=== PATIENT | female | born 2000 | race Caucasian/White ===

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

== ENCOUNTER 2023-04-25 23:55 | Emergency (ER) | payer OTHER ==
[2023-04-26 00:02] VITALS: BP 127/60; PULSE 109; RESP 20; TEMP 98.6; BMI 34.2
[2023-04-26] MEDS ORDERED: ACETAMINOPHEN 325 MG TABLET (FP) PO ONE (00:36)
[2023-04-26] MEDS ORDERED: ACETAMINOPHEN 325 MG TABLET (FP) ONE (00:52)
[2023-04-26 01:01] LABS: PH,URINE 6.5 (5.0-8.0); URINE APPEARANCE CLEAR; URINE BILIRUBIN NEGATIVE (NEGATIVE); URINE COLOR YELLOW; URINE GLUCOSE (UA) NEGATIVE (NEGATIVE); URINE KETONE NEGATIVE (NEGATIVE); URINE LEUK ESTERASE NEGATIVE (NEGATIVE); URINE NITRITE NEGATIVE (NEGATIVE); URINE PROTEIN NEGATIVE (NEGATIVE)
[2023-04-26 01:04] LABS: HCG,QUALITATIVE URINE Negative
[2023-04-26] MEDS ORDERED: KETOROLAC TROMETHAMINE 30 MG/1 ML VIAL IVPUSH ONE (01:06)
[2023-04-26] MEDS: LACTATED RINGERS SOLUTION 1000 ML INFUS.BAG IV ONE ×2 (01:15→01:58)
[2023-04-26] MEDS ORDERED: KETOROLAC TROMETHAMINE 15 MG/ML VIAL ONE (01:16)
== END 2023-04-26 02:02 | disposition home or self-care (01) ==
LOC: JER 23:55
PROC: 3E0333Z Introduction of Anti-inflammatory into Peripheral Vein, Percutaneous Approach (ICD-10-PCS; principal; 2023-04-25)
DX: R19.7 Diarrhea, unspecified (principal); R07.9 Chest pain, unspecified; R05.1 Acute cough; G44.209 Tension-type headache, unspecified, not intractable
CPT/HCPCS: 71046-TC-FY; 81003; 84703; 87086; 93005; 93010; 99285-25

== ENCOUNTER 2023-12-12 07:21 | Emergency (ER) | payer OTHER ==
[2023-12-12 07:29] VITALS: BP 126/97; PULSE 97; RESP 16; TEMP 98.8; BMI 34.2
[2023-12-12] MEDS ORDERED: valACYclovir HCL 500 MG TABLET (FP) ONE (08:21)
[2023-12-12] MEDS ORDERED: predniSONE 20 MG TABLET (UD) ONE (08:21)
[2023-12-12] MEDS: valACYclovir HCL 500 MG TABLET (FP) PO ONE (08:28)
[2023-12-12] MEDS: ARTIFICIAL TEARS OPHTHALMIC DROPS OU ONE (08:28)
[2023-12-12] MEDS: predniSONE 20 MG TABLET (UD) PO ONE (08:28)
== END 2023-12-12 08:43 | disposition home or self-care (01) ==
LOC: JER 07:21
DX: R51.9 Headache, unspecified (principal); G51.0 Bell's palsy
CPT/HCPCS: 99283-25